=== PATIENT | male | born 1990 | race Caucasian/White ===

== ENCOUNTER 2017-11-27 23:53 | Emergency (ER) | payer BC, OTHER ==
[~2017-11-27] VITALS: Ht 172.7 cm; Wt 82.6 kg
[2017-11-28] VITALS: BP 133/84
== END 2017-11-28 01:10 | disposition home or self-care (01) ==
LOC: ED 23:59
DX: J34.0 Abscess, furuncle and carbuncle of nose (principal); F17.200 Nicotine dependence, unspecified, uncomplicated
CPT/HCPCS: 99283